=== PATIENT | female | born 1970 | race Caucasian/White ===

== ENCOUNTER → 2025-06-17 | Outpatient (CLI) | payer MEDICAID ==
--- NOTE | 2025-06-17 14:10 | RADIOLOGY REPORT ---
CLINICAL INFORMATION: 54 years old, Female; EFFUSION,LEFT ANKLE CT LEFT FOOT W/O CONTRAST. TECHNIQUE: Axial CT images of the left ankle were obtained without IV contrast. Coronal and sagittal reformatted images were obtained, reviewed, and stored. All CT scans at this medical facility are pe rformed using dose modulation techniques as appropriate to a performed exam including the following: Automated exposure control was utilized; adjustment of the MA and/or KV according to patient size; an d use of iterative reconstruction technique. CTDIvol = 16.52 mGy DLP = 355.28 mGy-cm COMPARISON: None available at the time of dictation. FINDINGS: No evidence of acute fracture. Postsurgical changes are seen from prior osteotomy of the 1s t tarsometatarsal joint with medial compression plate and associated screws and single screw extendin g anterior to posterior across the 1st tarsometatarsal joint. There is greater than 50% osseous fusio n across the 1st tarsometatarsal joint. Postsurgical changes are seen along the lateral aspect of the calcaneus associated with an osteotomy site. The osteotomy site remains mostly ununited at this time . Surgical hardware remains intact. There is a chronic appearing ununited fracture of the anterior pr ocess of the calcaneus with up to 2.5 mm gap at the fracture site. There are postsurgical changes at the medial aspect of the navicular with tracts from anchors in this location. There also tracts from anchors in the anterior aspect of the lateral malleolus near the expected attachment site of the ante rior talofibular ligament. Talar dome appears smooth. Moderate arthritic changes are seen at the 1st MTP joint with joint space narrowing, subchondral sclerosis, and subchondral cystic change. There is valgus alignment of the 2nd and 3rd MTP joints. There is mild to moderate edema along the medial and lateral aspects of the ankle adjacent to the courses of the distal tibialis posterior tendon and ric karl tendons. IMPRESSION: 1. Postsurgical changes of prior 1st tarsometatarsal joint osteotomy with solid osseous fusion involv ing greater than 50% of the 1st tarsometatarsal joint. Intact appearing surgical hardware. 2. Postsurgical changes of prior calcaneal osteotomy. The osteotomy site is mostly ununited. Surgica l hardware is intact. 3. 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 4. Arthritic changes and additional findings as detailed above.
== END | disposition home or self-care (01) ==
LOC: RAD 09:47
PROVIDERS: ATTEND Podiatrist Foot & Ankle Surgery
DX: S92.002A Unspecified fracture of left calcaneus, initial encounter for closed fracture (principal); M25.472 Effusion, left ankle; M25.471 Effusion, right ankle; M20.12 Hallux valgus (acquired), left foot; M20.11 Hallux valgus (acquired), right foot; M21.6X2 Other acquired deformities of left foot; M21.6X1 Other acquired deformities of right foot; M25.372 Other instability, left ankle; M25.375 Other instability, left foot; M25.371 Other instability, right ankle; M25.374 Other instability, right foot; R60.0 Localized edema; M19.072 Primary osteoarthritis, left ankle and foot; X58.XXXA Exposure to other specified factors, initial encounter; Y93.89 Activity, other specified; Y92.89 Other specified places as the place of occurrence of the external cause; Y99.8 Other external cause status
CPT/HCPCS: 73700